=== PATIENT | female | born 1980 | race Caucasian/White ===

== ENCOUNTER 2019-12-07 08:26 | Emergency (ER) | payer OTHER, SELFPAY ==
[2019-12-07 08:40] VITALS: BP 134/79; PULSE 84; RESP 20; TEMP 36.8; O2SAT 98
--- NOTE | 2019-12-07 08:50 | ED.URI ---
HPI - URI/Sore Throat General Chief Complaint: Upper Respiratory Infection Stated Complaint: chest congestion Time Seen by Provider: 12/07/19 08:50 Source: patient and RN notes reviewed History of Present Illness HPI Narrative: Patient is a 39-year-old female that presents the urgent care with complaints of rattling in her breath. Patient states that she has pneumonia once a year around this time and wants to make sure it does not turn into pneumonia. Patient denies any shortness of breath. States that she does have some wheezing when laying down and a slight productive cough. Patient states she has been using her son's albuterol nebulizer as needed. Patient denies any fever, chills, nausea, vomiting, chest pain. No other acute complaints. Has not used anything else [id number] for symptoms. Patient read the plan of care. Related Data Home Medications Medication Instructions Recorded Confirmed lisinopril 40 mg PO DAILY 12/07/19 12/07/19 triamterene-hydrochlorothiazid 1 tablet PO QAM 12/07/19 12/07/19 venlafaxine 37.5 mg PO BID 12/07/19 12/07/19 Allergies Allergy/AdvReac Type Severity Reaction Status Date / Time No Known Allergies Allergy Verified 12/07/19 08:53 Review of Systems Review of Systems: Narrative: CONSTITUTIONAL: Denies fever, chills, or sweats. EYES: Denies visual changes, redness, or discharge. ENT: Denies rhinorrhea, congestion, sore throat, or otalgia. CARDIOVASCULAR: Denies chest pain, palpitations, or edema. RESPIRATORY: Reports of mild intermittent productive cough without dyspnea. Reports of intermittent wheezing GASTROINTESTINAL: Denies abdominal pain, nausea, vomiting, or diarrhea. GENITOURINARY: Denies dysuria or hematuria. SKIN: Denies rash or itching. MUSCULOSKELETAL: Denies back pain, joint pain, or myalgia. NEUROLOGIC: Denies headache, numbness, or weakness. PMFSH Social History Social History Smoking status: Never smoker Comments At the time of my signature, I reviewed and agree with the nursing past medical, surgical, social, and family history. There is no relevant family history pertinent to the patient complaint. Exam Narrative: Exam Narrative: GENERAL: This is a well-nourished, well-developed patient, in no apparent distress. HEAD: normocephalic, atraumatic. EYES: PERRL. Sclera clear/white. Vision is grossly intact. EARS: External ears normal, auditory canals clear and without drainage, TMs normal without perforation. Hearing grossly intact. NOSE: External nose normal with no obvious nasal discharge, nares without redness, no rhinorrhea. THROAT: Mucous membranes moist, posterior pharynx clear. Mild postnasal drainage NECK: Neck supple, non-tender without lymphadenopathy, masses or thyromegaly. CARDIOVASCULAR: Regular rate and rhythm without murmurs, gallops, or rubs. RESPIRATORY: Clear to auscultation. Very slightly diminished right lower. No wheezes, rales, or rhonchi. SKIN: warm, intact with no suspicious lesions or rash, good texture and turgor. NEURO: awake, alert, and oriented to person, place and time. There were no obvious focal neurologic abnormalities. EXTREMITIES: No clubbing, cyanosis, or edema. Course Vital Signs Vital signs: Vital Signs Temperature 98.2 F 12/07/19 08:40 Pulse Rate 84 12/07/19 08:40 Respiratory Rate 20 12/07/19 08:40 Blood Pressure 134/79 12/07/19 08:40 Pulse Oximetry 98 12/07/19 08:40 Temperature 98.2 F 12/07/19 08:40 Pulse Rate 84 12/07/19 08:40 Respiratory Rate 20 12/07/19 08:40 Blood Pressure 134/79 12/07/19 08:40 Pulse Oximetry 98 12/07/19 08:40 Reviewed MDM - URI/Sore Throat MDM Narrative Medical decision making narrative: Advised the patient to use [id number] cough medication as needed. May continue use albuterol inhaler or nebulizer as needed. If you develop any increase in symptoms associated with shortness of breath, persistent wheezing, productive cough and fever?go to the [facility]
== END 2019-12-07 09:05 | disposition home or self-care (01) ==
PROVIDERS: Emergency Provider Nurse Practitioner Family
DX: R05 Cough (principal); I10 Essential (primary) hypertension; F32.9 Major depressive disorder, single episode, unspecified
CPT/HCPCS: 99211; G0463

== ENCOUNTER 2019-12-16 09:23 | Emergency (ER) | payer OTHER, SELFPAY ==
[2019-12-16 09:37] VITALS: BP 153/96; PULSE 82; RESP 20; TEMP 36.8; O2SAT 100
--- NOTE | 2019-12-16 09:51 | ED.URI ---
HPI - URI/Sore Throat General Chief Complaint: Upper Respiratory Infection Stated Complaint: sore throat Time Seen by Provider: 12/16/19 09:51 Source: patient and RN notes reviewed History of Present Illness HPI Narrative: Patient is a 39-year-old female that presents the urgent care with complaints of a cough for several weeks and 4-day history of sore throat. Patient denies any known fever, nausea, vomiting. Has been using [id number] medications to soothe the throat. No other acute complaints. No acute distress noted. Patient had a plan of care. Related Data Home Medications Medication Instructions Recorded Confirmed albuterol sulfate 2 inh INHALATION QID PRN 12/07/19 12/07/19 lisinopril 40 mg PO DAILY 12/07/19 12/07/19 triamterene-hydrochlorothiazid 1 tablet PO QAM 12/07/19 12/07/19 venlafaxine 37.5 mg PO BID 12/07/19 12/07/19 Allergies Allergy/AdvReac Type Severity Reaction Status Date / Time No Known Allergies Allergy Verified 12/07/19 08:53 Review of Systems Review of Systems: Narrative: CONSTITUTIONAL: Denies fever, chills, or sweats. EYES: Denies visual changes, redness, or discharge. ENT: Reports of sore throat CARDIOVASCULAR: Denies chest pain, palpitations, or edema. RESPIRATORY: Reports of cough without dyspnea GASTROINTESTINAL: Denies abdominal pain, nausea, vomiting, or diarrhea. GENITOURINARY: Denies dysuria or hematuria. SKIN: Denies rash or itching. MUSCULOSKELETAL: Denies back pain, joint pain, or myalgia. NEUROLOGIC: Denies headache, numbness, or weakness. All other systems reviewed are negative, except as documented in HPI. PMFSH Social History Social History Smoking status: Never smoker Comments At the time of my signature, I reviewed and agree with the nursing past medical, surgical, social, and family history. There is no relevant family history pertinent to the patient complaint. Exam Narrative: Exam Narrative: GENERAL: This is a well-nourished, well-developed patient, in no apparent distress. HEAD: normocephalic, atraumatic. EYES: PERRL. Sclera clear/white. Vision is grossly intact. EARS: External ears normal, auditory canals clear and without drainage, TMs normal without perforation. Hearing grossly intact. NOSE: External nose normal with no obvious nasal discharge, nares without redness, no rhinorrhea. THROAT: Mucous membranes moist, mild erythema noted posterior oropharynx with moderate bilateral tonsillar edema bilateral exudate NECK: Neck supple, tender bilateral mild submandibular lymphadenopathy CARDIOVASCULAR: Regular rate and rhythm without murmurs, gallops, or rubs. RESPIRATORY: Clear to auscultation. Breath sounds equal bilaterally. No wheezes, rales, or rhonchi. SKIN: warm, intact with no suspicious lesions or rash, good texture and turgor. NEURO: awake, alert, and oriented to person, place and time. There were no obvious focal neurologic abnormalities. EXTREMITIES: No clubbing, cyanosis, or edema. Course Vital Signs Vital signs: Vital Signs Temperature 98.2 F 12/16/19 09:37 Pulse Rate 82 12/16/19 09:37 Respiratory Rate 20 12/16/19 09:37 Blood Pressure 153/96 H 12/16/19 09:37 Pulse Oximetry 100 12/16/19 09:37 Temperature 98.2 F 12/16/19 09:37 Pulse Rate 82 12/16/19 09:37 Respiratory Rate 20 12/16/19 09:37 Blood Pressure 153/96 H 12/16/19 09:37 Pulse Oximetry 100 12/16/19 09:37 Reviewed?patient is informed that they may have pre-hypertension or hypertension based on a blood pressure reading in the department. I recommend the patient call the primary care provider listed on their discharge instructions or a physician of their choice this week to arrange follow-up for further evaluation of possible pre-hypertension or hypertension. MDM - URI/Sore Throat MDM Narrative Medical decision making narrative: Reviewed lab results with the patient. She is aware that strep swab was negative. Educated patient on culture and will call wi
== END 2019-12-16 10:05 | disposition home or self-care (01) ==
PROVIDERS: Emergency Provider Nurse Practitioner Family
DX: J02.9 Acute pharyngitis, unspecified (principal); R59.9 Enlarged lymph nodes, unspecified; I10 Essential (primary) hypertension; F32.9 Major depressive disorder, single episode, unspecified
CPT/HCPCS: 87081; 87880; 99213; G0463

== ENCOUNTER 2020-08-12 08:12 | Outpatient (CLI) | payer OTHER, SELFPAY ==
--- NOTE | ~2020-08-12 | CT_ITS ---
EXAMINATION: CT abdomen wo con EXAM DATE: 08/12/2020 08:32 INDICATION: Upper abdominal pain, felt a pop. Hernia repair 2 years ago. Diastases recti? TECHNIQUE: Spiral CT of the abdomen was performed without contrast. Axial, coronal and sagittal alicja ges were reviewed. The dose-length product (DLP) for this examination was 949.64 mGy-cm. The exposu re was tailored according to patient size (auto mA exposure control), and iterative reconstruction (A SIR) was used as additional dose reduction technique. There is no prior study for comparison. FINDINGS: There is a 2.5 cm left adrenal gland adenoma. Otherwise unremarkable Gallbladder is unrem arkable. No biliary obstruction. Punctate left inferior calyceal stone. No obstructive nephropathy. There is no retroperitoneal lymphadenopathy. The stomach and small bowel are unremarkable. There is expected amount of colonic stool. No free i ntraperitoneal gas. The heart is normal in size. There are no pericardial or pleural effusions. T he lung bases are unremarkable. The bones are unremarkable. IMPRESSION: 1. Tiny umbilical, supra umbilical fat-containing hernias. 2. Punctate left nephrolithiasis. Reviewed, dictated and finalized at location B.
== END 2020-08-12 08:13 | disposition home or self-care (01) ==
LOC: CHSIMG 08:13
PROVIDERS: PCP Family Medicine; Visit Provider Family Medicine
DX: R10.9 Unspecified abdominal pain (principal)
CPT/HCPCS: 74150